=== PATIENT | female | born 1950 | race Caucasian/White ===

== ENCOUNTER 2017-07-18 05:53 | Inpatient (IN) | payer MEDICARE ==
[~2017-07-18] VITALS: Ht 170.2 cm; Wt 100.2 kg
[2017-07-18 06:09] LABS: BASOPHILS 0.2 % (0-2); EOSINOPHILS 1.8 % (0-7); HEMATOCRIT 33.7 % (36.0-48.0); HEMOGLOBIN 10.8 g/dL (12-16); IMMATURE GRANULOCYTES 0.4 % (0-5); LYMPHOCYTES 36.5 % (15-50); MCH 28.6 pg (26.0-34.0); MCV 89.2 fL (80.0-100.0); MEAN PLATELET VOLUME 9.2 fL (7.4-10.4); MONOCYTES 10.9 % (2-11); NEUTROPHILS 50.2 % (40-80); PLATELET COUNT 327 10x3/uL (130-400); RBC 3.78 10x6/uL (4.00-5.40); RDW 17.2 % (11.5-14.5); WBC 16.8 10x3/uL (4.8-10.8)
[2017-07-18 06:43] LABS: ALBUMIN 2.9 g/dL (3.4-5.0); ANION GAP 10.5 mmol/L (8-16); BILIRUBIN - TOTAL 0.2 mg/dL (0.2-1.3); CALCIUM 8.1 mg/dL (8.5-10.1); CARBON DIOXIDE 29.9 mmol/L (21.0-32.0); CREATININE - SERUM 0.9 mg/dL (0.6-1.3); POTASSIUM - SERUM 4.4 mmol/L (3.5-5.1); PROTEIN - SERUM 6.6 g/dL (6.4-8.2)
[2017-07-18 06:48] LABS: APPEARANCE SLT CLOUDY (CLEAR); BACTERIA FEW /hpf (NONE SEEN); BILIRUBIN NEGATIVE (NEGATIVE); COLOR YELLOW (YELLOW); EPITHELIAL CELLS 0-5 /hpf (0-5); GLUCOSE NEGATIVE (NEGATIVE); KETONE NEGATIVE (NEGATIVE); MUCUS <1+ /lpf (NONE SEEN); NITRITE NEGATIVE (NEGATIVE); PROTEIN NEGATIVE (NEGATIVE); RED CELLS - URINE 0-5 /hpf (0-5); SPECIFIC GRAVITY 1.025 (1.005-1.020); UROBILINOGEN NORMAL (NORMAL); WHITE CELLS - URINE OCC /hpf (0-5)
[2017-07-18 06:49] LABS: GRANULAR CAST RARE /lpf (NONE SEEN)
[2017-07-18 07:18] LABS: UDS - AMPHET NEGATIVE QUAL (NEGATIVE); UDS - BARB NEGATIVE QUAL (NEGATIVE); UDS - BENZO POSITIVE QUAL (NEGATIVE); UDS - COCAINE NEGATIVE QUAL (NEGATIVE); UDS - OPIATE POSITIVE QUAL (NEGATIVE); UDS - PCP NEGATIVE QUAL (NEGATIVE); UDS - THC NEGATIVE QUAL (NEGATIVE)
[2017-07-18 23:10] VITALS: BP 153/79; BP 174/75
[2017-07-18 23:46] VITALS: BP 174/75; BMI 34.5
[2017-07-19] VITALS (14 sets, daily range): BP systolic 139–177; BP diastolic 71–95; Ht 170.2 cm; Wt 100.2 kg
[2017-07-19] MEDS ORDERED: CELEXA20 MG PO (00:06)
[2017-07-19] MEDS ORDERED: LEVOTHYROXINE150 MCG PO (00:07)
[2017-07-19] MEDS ORDERED: ALBUTEROL2.5 MG/3 M INH (00:08)
[2017-07-19] MEDS ORDERED: ANORO ELLIPTA1 EACH INH (00:09)
[2017-07-19 04:26] LABS: BASOPHILS 0.3 % (0-2); EOSINOPHILS 1.3 % (0-7); HEMATOCRIT 32.6 % (36.0-48.0); HEMOGLOBIN 10.6 g/dL (12-16); IMMATURE GRANULOCYTES 0.4 % (0-5); MCH 28.6 pg (26.0-34.0); MCHC 32.5 g/dL (31.0-37.0); MCV 88.1 fL (80.0-100.0); MEAN PLATELET VOLUME 9.5 fL (7.4-10.4); MONOCYTES 12.4 % (2-11); NEUTROPHILS 60.6 % (40-80); PLATELET COUNT 303 10x3/uL (130-400); WBC 14.1 10x3/uL (4.8-10.8)
[2017-07-19 04:43] LABS: ALBUMIN 2.6 g/dL (3.4-5.0); ALKALINE PHOSPHATASE 74 U/L (46-116); ALT (SGPT) 18 U/L (10-68); CALC OSMOLALITY 277 mosm/kg (275-300); CARBON DIOXIDE 27.9 mmol/L (21.0-32.0); CHLORIDE - SERUM 105 mmol/L (98-107); CREATININE - SERUM 0.8 mg/dL (0.6-1.3); GLUCOSE 97 mg/dL (74-106); POTASSIUM - SERUM 4.1 mmol/L (3.5-5.1); PROTEIN - SERUM 6.3 g/dL (6.4-8.2); SODIUM 139 mmol/L (136-145); UREA NITROGEN 12 mg/dL (7-18); eGFR NON AFRICAN AMERICAN 76 mL/min (90-120)
[2017-07-20] VITALS (7 sets, daily range): BP systolic 128–171; BP diastolic 67–83
[2017-07-20 03:57] LABS: BASOPHILS 0.2 % (0-2); EOSINOPHILS 0.9 % (0-7); HEMATOCRIT 31.8 % (36.0-48.0); HEMOGLOBIN 10.6 g/dL (12-16); IMMATURE GRANULOCYTES 0.2 % (0-5); MCH 28.9 pg (26.0-34.0); MCHC 33.3 g/dL (31.0-37.0); MCV 86.6 fL (80.0-100.0); MEAN PLATELET VOLUME 9.2 fL (7.4-10.4); MONOCYTES 13.4 % (2-11); NEUTROPHILS 58.3 % (40-80); PLATELET COUNT 276 10x3/uL (130-400); RBC 3.67 10x6/uL (4.00-5.40); RDW 16.6 % (11.5-14.5)
[2017-07-20 04:22] LABS: ALBUMIN 2.6 g/dL (3.4-5.0); ALKALINE PHOSPHATASE 64 U/L (46-116); ALT (SGPT) 19 U/L (10-68); BILIRUBIN - TOTAL 0.51 mg/dL (0.2-1.3); CALC OSMOLALITY 275 mosm/kg (275-300); CHLORIDE - SERUM 104 mmol/L (98-107); CREATININE - SERUM 0.8 mg/dL (0.6-1.3); GLUCOSE 100 mg/dL (74-106); PROTEIN - SERUM 6.2 g/dL (6.4-8.2); SODIUM 138 mmol/L (136-145); UREA NITROGEN 13 mg/dL (7-18); eGFR NON AFRICAN AMERICAN 76 mL/min (90-120)
[2017-07-21 03:00] VITALS: BP 159/71
[2017-07-21 07:30] VITALS: BP 155/67
[2017-07-21 11:20] VITALS: BP 113/65
[2017-07-21 15:00] VITALS: BP 125/84
[2017-07-21 19:00] VITALS: BP 126/81
[2017-07-21 22:58] VITALS: BP 174/72
[2017-07-22] VITALS (7 sets, daily range): BP systolic 133–155; BP diastolic 72–85
[2017-07-22] MEDS ORDERED: LIPITOR20 MG PO (13:19)
[2017-07-22] MEDS ORDERED: ASPIRIN325 MG PO (13:20)
== END 2017-07-22 15:15 | DRG 177 ==
LOC: D.ER 05:53 → D.ICU 11:06
PROVIDERS: Emergency Medicine; Family Medicine; Internal Medicine Nephrology
PROC: 0T9B70Z Drainage of Bladder with Drainage Device, Via Natural or Artificial Opening (ICD-10-PCS; principal; 2017-07-18)
PROC: 0D9670Z Drainage of Stomach with Drainage Device, Via Natural or Artificial Opening (ICD-10-PCS; 2017-07-19)
DX: J69.0 Pneumonitis due to inhalation of food and vomit (principal); I63.512 Cerebral infarction due to unspecified occlusion or stenosis of left middle cerebral artery; R40.2213 Coma scale, best verbal response, none, at hospital admission; G93.6 Cerebral edema; G81.91 Hemiplegia, unspecified affecting right dominant side; R47.01 Aphasia; R41.82 Altered mental status, unspecified; R40.2353 Coma scale, best motor response, localizes pain, at hospital admission; R40.2133 Coma scale, eyes open, to sound, at hospital admission; I10 Essential (primary) hypertension; E11.9 Type 2 diabetes mellitus without complications; Z72.0 Tobacco use; J44.9 Chronic obstructive pulmonary disease, unspecified